=== PATIENT | female | born 2000 | race African-American/Black ===

== ENCOUNTER 2021-02-23 22:35 | Emergency (ER) | payer OTHER ==
[~2021-02-23] VITALS: Ht 160 cm; Wt 52.2 kg
[2021-02-24] MEDS ORDERED: ZOFRAN4 MG PO (03:33)
[2021-02-24] MEDS ORDERED: PEPCID40 MG PO (03:33)
== END 2021-02-24 04:27 ==
LOC: ER 22:35
DX: S00.83XA Contusion of other part of head, initial encounter (principal); W18.09XA Striking against other object with subsequent fall, initial encounter; Y93.89 Activity, other specified; Y92.89 Other specified places as the place of occurrence of the external cause; Y99.8 Other external cause status; R11.11 Vomiting without nausea; F10.129 Alcohol abuse with intoxication, unspecified